=== PATIENT | female | born 1965 | race Caucasian/White ===

== ENCOUNTER → 2016-12-10 | Outpatient (CLI) | payer BC ==
[2016-12-10 16:35] LABS: BLOOD UREA NITROGEN 15 mg/dL (7-22); BUN/CREATININE RATIO 16.66 (6-20); CALCIUM 9.3 mg/dL (8.7-10.7); CHLORIDE 99 meq/L (98-112); CREATININE 0.9 mg/dL (0.50-1.20); EST GLOMERULAR FILTRATION > 60 (>60 ml/min/1.73m(2)); GLUCOSE 102 mg/dL (78-110); POTASSIUM 4.2 meq/L (3.8-5.2); SODIUM 137 meq/L (135-145)
== END ==
LOC: LAB 10:20
PROVIDERS: ATTEND Physician Assistant Medical
DX: E87.6 Hypokalemia (principal); Z96.642 Presence of left artificial hip joint; Z98.890 Other specified postprocedural states
CPT/HCPCS: 80048

== ENCOUNTER → 2016-12-16 | Outpatient (CLI) | payer BC ==
[2016-12-16 11:29] LABS: HEMATOCRIT 36.7 % (37.0-47.0); HEMOGLOBIN 12.2 g/dL (12.0-16.0); MEAN CORPUSCULAR HEMOGLOBIN 29.8 PG (27-31); MEAN CORPUSCULAR HGB CONC 33.2 g/dL (33-37); MEAN PLATELET VOLUME 9.6 FL (7.4-12.2); RDW COEFFICIENT OF VARIATION 13.6 % (11.5-14.5); WHITE BLOOD COUNT 23.47 10^3/uL (4.8-10.8)
[2016-12-16 11:43] LABS: PLATELET MORPHOLOGY COMMENT NORMAL MORPHOLOGY (NORM)
[2016-12-16 11:55] LABS: BAND NEUTROPHILS % 9 % (0-10); LYMPHOCYTES % (MANUAL) 7 % (10-50); NEUTROPHILS % (MANUAL) 78 % (50-80)
[2016-12-16 11:56] LABS: BASOPHILS % (MANUAL) 0 % (0-1); EOSINOPHILS % (MANUAL) 2 % (0-8); MONOCYTES % (MANUAL) 4 % (0-12)
[2016-12-16 12:42] LABS: ERYTHROCYTE SEDIMENTATION RATE 82 MM/HR (0-20)
== END ==
LOC: LAB 11:07
PROVIDERS: ATTEND Orthopaedic Surgery
DX: M25.552 Pain in left hip (principal); Z96.642 Presence of left artificial hip joint
CPT/HCPCS: 36415; 85007; 85652; 86140

== ENCOUNTER → 2017-03-06 | Outpatient (CLI) | payer BC | LOC: LAB 08:22 | PROVIDERS: ATTEND Physician Assistant Medical | DX: Z79.2 Long term (current) use of antibiotics (principal) | CPT/HCPCS: 85652; 86140 ==

== ENCOUNTER → 2017-03-21 | Outpatient (CLI) | payer BC ==
[2017-03-21 14:31] LABS: BASOPHILS # (AUTO) 0.04 10*3/UL; BASOPHILS % (AUTO) 0.4 % (0-1); EOSINOPHILS # (AUTO) 0.54 10*3/UL; EOSINOPHILS % (AUTO) 5.2 % (0-8); HEMATOCRIT 36.9 % (37.0-47.0); HEMOGLOBIN 12.2 g/dL (12.0-16.0); LYMPHOCYTES # (AUTO) 3.42 10*3/uL; MEAN CORPUSCULAR HEMOGLOBIN 28.8 PG (27-31); MEAN CORPUSCULAR HGB CONC 33.1 g/dL (33-37); MEAN PLATELET VOLUME 10.5 FL (7.4-12.2); MONOCYTES # (AUTO) 0.58 10*3/UL (0.3-0.8); MONOCYTES % (AUTO) 5.6 % (5-15); NEUTROPHILS % (AUTO) 55.7 % (50-80); RED BLOOD COUNT 4.24 10^6/uL (4.20-5.40)
[2017-03-21 14:33] LABS: PLATELET MORPHOLOGY COMMENT NORMAL MORPHOLOGY (NORM); RBC MORPHOLOGY COMMENT NORMAL MORPHOLOGY (NORM); WBC MORPHOLOGY COMMENT NORMAL MORPHOLOGY (NORM)
[2017-03-21 14:58] LABS: BLOOD UREA NITROGEN 17 mg/dL (7-22); BUN/CREATININE RATIO 18.88 (6-20); C-REACTIVE PROTEIN 2.1 mg/dL (0.0-0.9); CALCIUM 8.2 mg/dL (8.7-10.7); EST GLOMERULAR FILTRATION > 60 (>60 ml/min/1.73m(2)); SERUM ALBUMIN 3.8 g/dL (3.5-4.8)
[2017-03-21 15:16] LABS: ERYTHROCYTE SEDIMENTATION RATE 54 MM/HR (0-20)
== END ==
LOC: LAB 10:30
PROVIDERS: ATTEND Physician Assistant Medical
DX: B95.61 Methicillin susceptible Staphylococcus aureus infection as the cause of diseases classified elsewhere (principal)
CPT/HCPCS: 80053; 85025; 85652; 86140

== ENCOUNTER → 2017-04-17 | Outpatient (CLI) | payer BC ==
--- NOTE | 2017-04-17 09:08 | EKG ---
[facility] Measurements Intervals [place] Rate: 68 P: 26 UT: 178 QRS: 1 QRSD: 101 T: 10 QT: 407 QTc: 425 Interpretive Statements SINUS RHYTHM Compared to ECG 11/20/2016 09:32:13 No significant changes Electronically Signed On 04-17-17 09:44:05 MDT by Nirmal Sood MD [email or web address]
[2017-04-17 15:27] LABS: BASOPHILS # (AUTO) 0.08 10*3/UL; BASOPHILS % (AUTO) 0.6 % (0-1); EOSINOPHILS # (AUTO) 0.63 10*3/UL; EOSINOPHILS % (AUTO) 4.4 % (0-8); HEMATOCRIT 40.1 % (37.0-47.0); HEMOGLOBIN 13.2 g/dL (12.0-16.0); LYMPHOCYTES # (AUTO) 5.05 10*3/uL; MEAN CORPUSCULAR HEMOGLOBIN 28.7 PG (27-31); MEAN CORPUSCULAR HGB CONC 32.9 g/dL (33-37); MEAN CORPUSCULAR VOLUME 87.2 FL (81-99); MEAN PLATELET VOLUME 10.8 FL (7.4-12.2); MONOCYTES # (AUTO) 0.96 10*3/UL (0.3-0.8); MONOCYTES % (AUTO) 6.8 % (5-15); NEUTROPHILS # (AUTO) 7.44 10*3/UL; NEUTROPHILS % (AUTO) 52.3 % (50-80)
[2017-04-17 15:45] LABS: BILIRUBIN,URINE SMALL (NEG); COLOR,URINE YELLOW; GLUCOSE, URINE (UA) NEGATIVE (NEG); NITRATE,URINE NEGATIVE (NEG); OCCULT BLOOD,URINE Trace-lysed (NEG); PH,URINE 5.5 (5.0-8.5); PROTEIN,URINE TRACE mg/dl (NEG); UROBILINOGEN,URINE 0.2 mg/dL (0.2)
[2017-04-17 15:52] LABS: PLATELET MORPHOLOGY COMMENT NORMAL MORPHOLOGY (NORM); RBC MORPHOLOGY COMMENT NORMAL MORPHOLOGY (NORM); WBC MORPHOLOGY COMMENT NORMAL MORPHOLOGY (NORM)
[2017-04-17 16:06] LABS: BLOOD UREA NITROGEN 14 mg/dL (7-22); BUN/CREATININE RATIO 15.55 (6-20); CALCIUM 8.3 mg/dL (8.7-10.7); EST GLOMERULAR FILTRATION > 60 (>60 ml/min/1.73m(2)); SERUM ALBUMIN 3.7 g/dL (3.5-4.8)
[2017-04-17 16:22] LABS: CLARITY,URINE CLOUDY (CLEAR); URINE SAMPLE TYPE VOIDED SPECIMEN
[2017-04-17 16:23] LABS: BACTERIA,URINE MODERATE; SQUAMOUS EPITHELIAL CELL,UR RARE
== END ==
LOC: EKG 09:25
PROVIDERS: ATTEND Physician Assistant Medical
DX: Z01.812 Encounter for preprocedural laboratory examination (principal); Z01.810 Encounter for preprocedural cardiovascular examination
CPT/HCPCS: 80053; 81001; 85025; 86850; 86900; 86901; 87088; 87641; 93005; 93010

== ENCOUNTER → 2017-07-17 | Outpatient (CLI) | payer BC ==
[2017-07-17 14:40] LABS: BASOPHILS # (AUTO) 0.05 10*3/UL; BASOPHILS % (AUTO) 0.5 % (0-1); EOSINOPHILS # (AUTO) 0.42 10*3/UL; EOSINOPHILS % (AUTO) 3.9 % (0-8); HEMATOCRIT 38.7 % (37.0-47.0); HEMOGLOBIN 12.7 g/dL (12.0-16.0); LYMPHOCYTES # (AUTO) 3.35 10*3/uL; MEAN CORPUSCULAR HEMOGLOBIN 28.3 PG (27-31); MEAN CORPUSCULAR HGB CONC 32.8 g/dL (33-37); MEAN CORPUSCULAR VOLUME 86.2 FL (81-99); MEAN PLATELET VOLUME 10.9 FL (7.4-12.2); MONOCYTES % (AUTO) 6.5 % (5-15); NEUTROPHILS % (AUTO) 58.1 % (50-80); RED BLOOD COUNT 4.49 10^6/uL (4.20-5.40)
[2017-07-17 14:45] LABS: PLATELET MORPHOLOGY COMMENT NORMAL MORPHOLOGY (NORM); RBC MORPHOLOGY COMMENT NORMAL MORPHOLOGY (NORM); WBC MORPHOLOGY COMMENT NORMAL MORPHOLOGY (NORM)
[2017-07-17 15:13] LABS: FERRITIN 10.9 ng/mL (12.00-336.70)
== END ==
LOC: LAB 09:33
PROVIDERS: ATTEND Physician Assistant Medical
DX: E03.9 Hypothyroidism, unspecified (principal); D51.8 Other vitamin B12 deficiency anemias; M1A.0790 Idiopathic chronic gout, unspecified ankle and foot, without tophus (tophi); R20.2 Paresthesia of skin; G47.00 Insomnia, unspecified
CPT/HCPCS: 82607; 82728; 82746; 84443; 84550; 85025